=== PATIENT | male | born 1975 ===

== ENCOUNTER 2018-04-26 07:51 | Day surgery (SDC) | payer BC ==
[2018-04-26 08:38] VITALS: BMI 23.8
[2018-04-26] MEDS ORDERED: Propofol 10 mg/ml Inj (20 ML) ONE (10:23)
[2018-04-26] MEDS ORDERED: Midazolam 2 MG/2 ML VIAL ONE (10:23)
[2018-04-26] MEDS: cefTRIAXone (Rocephin) 1 gm Inj ONE ×2 (10:35→11:05)
[2018-04-26] MEDS ORDERED: HYDROmorphone 0.5 mg/0.5 ml ISec IVP PRN (10:58)
[2018-04-26] MEDS ORDERED: Lactated Ringer's 1,000 ML IV ONE (11:06)
[2018-04-26 12:54] VITALS: TEMP 98
[2018-04-26 12:55] VITALS: O2SAT 98
--- NOTE | 2018-04-26 13:08 | CARD ---
APPROVED REPORT Date of service: 04/26/2018 EKG Measurement Heart [id number] <Conclusion> Sinus tachycardia Minimal voltage criteria for LVH, may be normal variant Early repolarization Borderline ECG
[2018-04-26 13:38] VITALS: BP 121/60; PULSE 83; RESP 98
--- NOTE | 2018-04-26 20:48 | OP ---
PROCEDURE DATE: 04/26/2018 PREOPERATIVE DIAGNOSIS: Urethral stricture. POSTOPERATIVE DIAGNOSIS: Urethral stricture. PROCEDURE PERFORMED: Urethral dilatation, followed by cystoscopy. DESCRIPTION OF PROCEDURE: The patient was placed on the operating room table in dorsal lithotomy position. The area of the groin was draped and prepped in a sterile manner. At this time, I know that this patient has a tight stricture in the distal urethra and navicular fossa area. I tried inserting a 12-Faroese [place] sound, this did not go through, totally impassable. I then put a sensor wire, which was able to enter the area of the urethra and over the sensory wire then I had to do a ureteroscopy, in a sense a urethroscopy with a ureteroscope over the sensor wire to be able to make the initial break of this very tight stricture. Once this was done, then we continued the dilatation up to a size 28-Faroese and let that stay there for several minutes. Following this, then the cystoscopy was performed in a routine manner. There was no evidence of any unusual bladder wall lesions, mild trabeculation, no prostatic obstruction. I then placed a #24 two-way [place] catheter, which at this point went in rather easily into the bladder and we will use that to maintain urethral patency in the next several days. The patient was taken from the operating room in good condition. Yordan Rodney MD
== END 2018-04-26 13:50 | disposition home or self-care (01) ==
LOC: H.OPSURG 07:51
PROVIDERS: ATTEND Urology
DX: N35.919 Unspecified urethral stricture, male, unspecified site (principal)
CPT/HCPCS: 52281; 93005; J0696; J2001; J2250; J2704; J2765; J3010; J7120